=== PATIENT | male | born 1975 | race Asian ===

== ENCOUNTER 2023-09-25 12:00 | Inpatient (IN) | payer OTHER ==
[~2023-09-25] VITALS: Ht 177.8 cm; Wt 98.0 kg
[2023-09-25] MEDS: NALOXONE HCL 1 MG/ML 2 ML SYRINGE IVP ONE (13:03)
[2023-09-25] MEDS: DEXTROSE 50%-WATER 25 GM/50 ML SYRINGE IVP ONE (13:03)
[2023-09-25 13:10] LABS: GLUCOMETER DEV NAME(LOC) ER.7; GLUCOSE,POINT OF CARE 133 MG/DL (70-110)
[2023-09-25 13:51] LABS: BASOPHILS % (AUTO) 1.3 % (0.0-2.0); EOSINOPHILS % (AUTO) 2.5 % (1.0-6.0); HEMATOCRIT 29.4 % (41-53); HEMOGLOBIN 9.4 g/dL (13.5-17.5); LYMPHOCYTES # (AUTO) 0.7 K/uL (1.0-4.8); LYMPHOCYTES % (AUTO) 10.8 % (22.0-44.0); MEAN CORPUSCULAR HEMOGLOBIN 29.3 pg (26.0-34.0); MEAN CORPUSCULAR HGB CONC 31.9 G/dL (31.0-37.0); MEAN CORPUSCULAR VOLUME 92 fL (80-100); MONOCYTES # (AUTO) 0.4 K/uL (0.1-1.0); MONOCYTES % (AUTO) 5.4 % (2.0-9.0); NEUTROPHILS # (AUTO) 5.2 K/uL (1.8-7.7); PLATELET COUNT (AUTO) 180 K/uL (150-450); RED BLOOD CELL COUNT(AUTO) 3.21 MIL/uL (4.50-5.90); RED CELL DISTRIBUTION WIDTH 18.7 % (11.5-14.5); WHITE BLOOD COUNT (AUTO) 6.5 K/uL (4.5-11.0)
[2023-09-25 14:01] LABS: ANION GAP 10 mmol/L (8-16); CALCIUM, TOTAL 8.8 mg/dL (8.8-10.5); CARBON DIOXIDE 29 mmol/L (22-29); CHLORIDE 100 mmol/L (98-107); CREATININE 6.69 mg/dL (0.60-1.30); GLOMERULAR FILTR. RATE CALC 9 mL/min (>60); GLUCOSE,RANDOM 97 mg/dL (70-110); POTASSIUM 4.5 mmol/L (3.5-5.1); SODIUM SERUM 139 mmol/L (136-145); UREA NITROGEN, BLOOD 58 mg/dL (7-18)
[2023-09-25 14:08] LABS: ALCOHOL, BLOOD (SERUM) < 3 mg/dL (0-10)
[2023-09-25 14:10] LABS: TROPONIN I-HIGH SENSITIVITY 26 ng/L (<76)
[2023-09-25] MEDS ORDERED: LACTULOSE 20 GM/30 ML SOLUTION UDCUP PO ONE (14:45)
[2023-09-25] MEDS: DEXTROSE 10%-WATER 1,000 ML IV ONE (14:48)
[2023-09-25 15:00] LABS: GLUCOMETER DEV NAME(LOC) ER.7; GLUCOSE,POINT OF CARE 86 MG/DL (70-110)
[2023-09-25 15:00] LABS: GLUCOMETER DEV NAME(LOC) ER.7; GLUCOSE,POINT OF CARE 76 MG/DL (70-110)
[2023-09-25] MEDS: BENZOCAINE 20% 50 MCG/SPRAY 57 GM TP ONE (15:04)
[2023-09-25] MEDS: LACTULOSE 20 GM/30 ML SOLUTION UDCUP NG ONE (15:04)
[2023-09-25] MEDS ORDERED: DEXTROSE 50%-WATER 25 GM/50 ML SYRINGE IVP PRN (16:45)
[2023-09-25] MEDS ORDERED: ONDANSETRON HCL 4 MG/2 ML VIAL IVP PRN (16:45)
[2023-09-25] MEDS ORDERED: HYDROCODONE/ACETAMINOPHEN 5-325 MG TABLET PO PRN (16:45)
[2023-09-25] MEDS ORDERED: ZOLPIDEM TARTRATE 5 MG TABLET PO PRN (16:45)
[2023-09-25] MEDS ORDERED: BISACODYL 10 MG RECTAL RECTAL SUPPOSITORY PR PRN (16:45)
[2023-09-25] MEDS ORDERED: MORPHINE SULFATE 2 MG/ML SYRINGE IVP PRN (16:45)
[2023-09-25] MEDS ORDERED: INSULIN LISPRO 100 UNITS/ML SQ PRN (16:45)
[2023-09-25] MEDS ORDERED: MAGNESIUM HYDROXIDE SUSPENSION 30 ML UDCUP PO PRN (16:45)
[2023-09-25] MEDS: DIPHENOXYLATE/ATROP 2.5-0.025 MG TABLET PO ONE (16:57)
[2023-09-25] MEDS: FOLIC ACID/VIT B COMPLEX AND C TABLET PO SCH (17:29)
[2023-09-25] MEDS: CALCIUM ACETATE 667 MG CAPSULE PO SCH (17:29)
[2023-09-25 17:51] LABS: GLUCOMETER DEV NAME(LOC) ER.7; GLUCOSE,POINT OF CARE 187 MG/DL (70-110)
[2023-09-25] MEDS: ACETAMINOPHEN 325 MG TABLET PO PRN (21:54)
[2023-09-25] MEDS: CARVEDILOL 25 MG TABLET PO SCH (21:57)
[2023-09-25] MEDS: HydrALAZINE HCL 20 MG/ML VIAL IVP PRN (21:57)
[2023-09-25] MEDS: DOCUSATE SODIUM 100 MG CAPSULE PO SCH (21:57)
[2023-09-25 22:00] VITALS: BP 180/93; PULSE 81; RESP 19; TEMP 98
[2023-09-25 22:20] VITALS: BP 175/79; PULSE 79; RESP 19; TEMP 97.9
[2023-09-25 23:17] VITALS: BP 159/62; PULSE 83; RESP 20; TEMP 97.9
[2023-09-26] VITALS (16 sets, daily range): BP systolic 144–193; BP diastolic 69–110; PULSE 70–82; RESP 18–20; TEMP 96.8–98.1
[2023-09-26] MEDS: HEPARIN SODIUM,PORCINE 5,000 UNITS/ML VIAL SQ SCH (00:12)
[2023-09-26] MEDS ORDERED: DEXTROSE 50%-WATER 25 GM/50 ML SYRINGE IVP PRN (01:30)
[2023-09-26] MEDS ORDERED: LABETALOL HCL 5 MG/ML 20 ML VIAL IVP PRN (01:30)
[2023-09-26] MEDS: NITROGLYCERIN 2% (1 GM=INCH) OINTMENT PACKET TP SCH (01:52)
[2023-09-26 02:01] LABS: GLUCOMETER DEV NAME(LOC) 5S.1B; GLUCOSE,POINT OF CARE 509 MG/DL (70-110)
[2023-09-26] MEDS: INSULIN LISPRO 100 UNITS/ML SQ ONE (03:21)
[2023-09-26] MEDS: INSULIN LISPRO 100 UNITS/ML SQ PRN (06:00)
[2023-09-26 06:16] LABS: GLUCOMETER DEV NAME(LOC) 5S.1B; GLUCOSE,POINT OF CARE 235 MG/DL (70-110)
[2023-09-26 08:01] LABS: GLUCOMETER DEV NAME(LOC) 5N.1D; GLUCOSE,POINT OF CARE 409 MG/DL (70-110)
[2023-09-26] MEDS: ASPIRIN 81 MG CHEWABLE TABLET PO SCH (09:25)
[2023-09-26] MEDS: PANTOPRAZOLE SODIUM 40 MG DR TABLET PO SCH (09:25)
[2023-09-26] MEDS: CLOPIDOGREL BISULFATE 75 MG TABLET PO SCH (09:26)
[2023-09-26 12:41] LABS: GLUCOMETER DEV NAME(LOC) 5S.2D; GLUCOSE,POINT OF CARE 91 MG/DL (70-110)
[2023-09-26 12:41] LABS: GLUCOMETER DEV NAME(LOC) 5S.2D; GLUCOSE,POINT OF CARE 151 MG/DL (70-110)
[2023-09-26] MEDS: NIFEdipine 60 MG ER TABLET PO SCH (16:25)
[2023-09-26] MEDS: INSULIN GLARGINE,HUM.REC.ANLOG 100 UNITS/ML SQ ONE (20:38)
[2023-09-27] VITALS: BP 148/79; PULSE 73; RESP 18; TEMP 97.7
[2023-09-27 04:00] VITALS: BP 155/82; PULSE 75; RESP 18; TEMP 97.7
[2023-09-27 06:21] LABS: GLUCOMETER DEV NAME(LOC) 5S.1B; GLUCOSE,POINT OF CARE 356 MG/DL (70-110)
[2023-09-27 06:21] LABS: GLUCOMETER DEV NAME(LOC) 5S.1B; GLUCOSE,POINT OF CARE 191 MG/DL (70-110)
[2023-09-27 08:12] VITALS: BP 119/68; PULSE 75; RESP 18; TEMP 97.8
[2023-09-27] MEDS: EPOETIN ALFA 10,000 UNITS/ML VIAL SQ SCH (09:08)
[2023-09-27] MEDS: INSULIN GLARGINE,HUM.REC.ANLOG 100 UNITS/ML SQ SCH (09:16)
[2023-09-27 11:45] LABS: GLUCOMETER DEV NAME(LOC) 5N.1D; GLUCOSE,POINT OF CARE 417 MG/DL (70-110)
[2023-09-27] MEDS ORDERED: INSLAN SQ (12:24)
[2023-09-27] MEDS ORDERED: PHOSLOC PO (12:24)
[2023-09-27] MEDS ORDERED: INSU100V SQ ×2 (12:24→14:03)
[2023-09-27] MEDS ORDERED: ASPI-1450 PO (12:24)
[2023-09-27] MEDS ORDERED: CARV25 PO (12:24)
[2023-09-27] MEDS ORDERED: NIFE-129 PO (12:24)
[2023-09-27] MEDS ORDERED: CLOP75TA60 PO (12:24)
[2023-09-27 12:35] VITALS: BP 159/80; PULSE 74; RESP 20; TEMP 97.5
[2023-09-27] MEDS: HydrALAZINE HCL 10 MG TABLET PO ONE (13:53)
[2023-09-27 14:11] LABS: GLUCOMETER DEV NAME(LOC) 5S.1B; GLUCOSE,POINT OF CARE 162 MG/DL (70-110)
[2023-09-27 15:47] VITALS: BP 157/71; PULSE 72; RESP 20
== END 2023-09-27 16:10 | disposition home or self-care (01) | DRG 637 ==
LOC: EMS 12:00 → UNDOADMIN 18:38 → 5S 18:38
PROVIDERS: ADMIT Internal Medicine; ATTEND Internal Medicine
PROC: 5A1D70Z Performance of Urinary Filtration, Intermittent, Less than 6 Hours Per Day (ICD-10-PCS; principal; 2023-09-26)
DX: E11.649 Type 2 diabetes mellitus with hypoglycemia without coma (principal); G93.41 Metabolic encephalopathy; I12.0 Hypertensive chronic kidney disease with stage 5 chronic kidney disease or end stage renal disease; N18.6 End stage renal disease; Z99.2 Dependence on renal dialysis; D63.1 Anemia in chronic kidney disease; E11.22 Type 2 diabetes mellitus with diabetic chronic kidney disease; E78.5 Hyperlipidemia, unspecified; Z79.82 Long term (current) use of aspirin; Z79.4 Long term (current) use of insulin; K76.82 Hepatic encephalopathy
CPT/HCPCS: 70450; 71045; 80048; 82140; 82962; 83036; 84484; 85025; 87081; 87340; 90935; 93005; 99285; G0378; G0480; J0360; J0885; J1644; J1815; 36415-L1; 36415-TC

== ENCOUNTER 2023-11-11 12:59 | Emergency (ER) | payer OTHER ==
[~2023-11-11] VITALS: Ht 177.8 cm; Wt 90.0 kg
[~2023-11-11 12:59] MED LIST: ASPI-1450 PO; CARV25 PO; CLOP75TA60 PO; INSLAN SQ; INSU100V SQ; NIFE-129 PO; PHOSLOC PO
[2023-11-11 13:20] VITALS: TEMP 97.9
[2023-11-11 13:36] LABS: GLUCOMETER DEV NAME(LOC) ER.7; GLUCOSE,POINT OF CARE 50 MG/DL (70-110)
[2023-11-11 14:01] LABS: GLUCOMETER DEV NAME(LOC) ER.7; GLUCOSE,POINT OF CARE 74 MG/DL (70-110)
[2023-11-11 15:00] VITALS: BP 184/90; PULSE 76; RESP 18
[2023-11-11 15:04] LABS: BASOPHILS % (AUTO) 0.6 % (0.0-2.0); EOSINOPHILS % (AUTO) 2.2 % (1.0-6.0); HEMATOCRIT 28.1 % (41-53); HEMOGLOBIN 8.9 g/dL (13.5-17.5); LYMPHOCYTES # (AUTO) 0.8 K/uL (1.0-4.8); LYMPHOCYTES % (AUTO) 8.1 % (22.0-44.0); MEAN CORPUSCULAR HGB CONC 31.7 G/dL (31.0-37.0); MEAN CORPUSCULAR VOLUME 95 fL (80-100); MONOCYTES # (AUTO) 1.1 K/uL (0.1-1.0); MONOCYTES % (AUTO) 11.2 % (2.0-9.0); NEUTROPHILS # (AUTO) 7.7 K/uL (1.8-7.7); NEUTROPHILS % (AUTO) 77.9 % (40.0-70.0); PLATELET COUNT (AUTO) 220 K/uL (150-450); RED BLOOD CELL COUNT(AUTO) 2.98 MIL/uL (4.50-5.90); RED CELL DISTRIBUTION WIDTH 19.7 % (11.5-14.5); WHITE BLOOD COUNT (AUTO) 9.9 K/uL (4.5-11.0)
[2023-11-11] MEDS: CARVEDILOL 25 MG TABLET PO ONE (15:06)
[2023-11-11 15:13] LABS: CALCIUM, TOTAL 8.9 mg/dL (8.8-10.5); CREATININE 6.35 mg/dL (0.60-1.30); POTASSIUM 3.8 mmol/L (3.5-5.1)
[2023-11-11 15:19] LABS: ALBUMIN 3.1 g/dL (3.4-5.0); BILIRUBIN,TOTAL 0.6 mg/dL (0.1-1.0); TOTAL PROTEIN, SERUM 7.8 g/dL (6.4-8.2)
== END 2023-11-11 17:30 | disposition home or self-care (01) ==
LOC: EMS 13:05
DX: E11.649 Type 2 diabetes mellitus with hypoglycemia without coma (principal); I12.0 Hypertensive chronic kidney disease with stage 5 chronic kidney disease or end stage renal disease; E11.22 Type 2 diabetes mellitus with diabetic chronic kidney disease; N18.6 End stage renal disease; Z88.5 Allergy status to narcotic agent; Z88.1 Allergy status to other antibiotic agents; Z88.6 Allergy status to analgesic agent; Z79.4 Long term (current) use of insulin; Z79.899 Other long term (current) drug therapy
CPT/HCPCS: 80053; 82962; 85025; 93005; 99284

== ENCOUNTER → 2024-10-16 | Emergency (ER) | payer OTHER ==
[~2024-10-16] VITALS: Ht 177.8 cm; Wt 94.3 kg
[~2024-10-16] MED LIST changes: -CLOP75TA60 PO; +CLOP75TA83 PO
[2024-10-16 22:47] VITALS: BP 134/97; PULSE 76; RESP 20; TEMP 98.4; O2SAT 98
== END | disposition still patient (30) ==
LOC: EMS 20:56
DX: M25.552 Pain in left hip (principal); Z53.21 Procedure and treatment not carried out due to patient leaving prior to being seen by health care provider
CPT/HCPCS: 99281; Z7502